=== PATIENT | male | born 1950 | race Caucasian/White ===

== ENCOUNTER 2021-10-18 14:40 | Outpatient (RCR) | payer MEDICARE, MEDICAID, SELFPAY | END 2021-11-14 11:08 | disposition home or self-care (01) | LOC: HO.WCC 14:40 | PROVIDERS: PCP Nurse Practitioner Family; Referring Provider Nurse Practitioner Family; Visit Provider Physician Assistant | DX: Z09 Encounter for follow-up examination after completed treatment for conditions other than malignant neoplasm (principal); E11.40 Type 2 diabetes mellitus with diabetic neuropathy, unspecified; E11.65 Type 2 diabetes mellitus with hyperglycemia; I10 Essential (primary) hypertension; F17.200 Nicotine dependence, unspecified, uncomplicated; Z79.84 Long term (current) use of oral hypoglycemic drugs; Z87.2 Personal history of diseases of the skin and subcutaneous tissue | CPT/HCPCS: 99212; 99214 ==

== ENCOUNTER 2021-10-21 11:02 | Outpatient (REF) | payer MEDICARE, MEDICAID, SELFPAY ==
--- NOTE | ~2021-10-21 | XR_ITS ---
EXAMINATION: XR HIP, RIGHT XR HIP, LEFT CLINICAL INFORMATION: Sciatica. COMPARISON: None TECHNIQUE: AP and frog-leg lateral views of each hip. FINDINGS: RIGHT HIP: Mild osteoarthritis is characterized by marginal osteophytes primarily. The joint space appears relatively well preserved. No fracture or malalignment. Enthesopathic spurring is present at the anterior superior iliac spine, ischial tuberosity, and the greater and lesser trochanters. No aggressive osseous lesions. Phleboliths are present in the pelvis. Mild osteoarthritis in the left SI joint. LEFT HIP: Mild osteoarthritis in the left hip with marginal osteophytes. The joint space appears relatively well preserved. No fracture or malalignment. Enthesopathic spurring is present at the trochanters and ischial tuberosity. Phleboliths are present in the pelvis. XR/XR hip LT min 2V IMPRESSION: Mild osteoarthritis in the hips. No acute osseous abnormalities.
--- NOTE | ~2021-10-21 | XR_ITS ---
EXAMINATION: XR HIP, RIGHT XR HIP, LEFT CLINICAL INFORMATION: Sciatica. COMPARISON: None TECHNIQUE: AP and frog-leg lateral views of each hip. FINDINGS: RIGHT HIP: Mild osteoarthritis is characterized by marginal osteophytes primarily. The joint space appears relatively well preserved. No fracture or malalignment. Enthesopathic spurring is present at the anterior superior iliac spine, ischial tuberosity, and the greater and lesser trochanters. No aggressive osseous lesions. Phleboliths are present in the pelvis. Mild osteoarthritis in the left SI joint. LEFT HIP: Mild osteoarthritis in the left hip with marginal osteophytes. The joint space appears relatively well preserved. No fracture or malalignment. Enthesopathic spurring is present at the trochanters and ischial tuberosity. Phleboliths are present in the pelvis. XR/XR hip RT min 2V IMPRESSION: Mild osteoarthritis in the hips. No acute osseous abnormalities.
--- NOTE | ~2021-10-21 | XR_ITS ---
EXAMINATION: XR LUMBOSACRAL SPINE WITH OBLIQUES CLINICAL INFORMATION: Low back pain and right-sided sciatica COMPARISON: None TECHNIQUE: AP, both oblique, and lateral views of the lumbar spine. Lateral view of the lumbosacral junction. FINDINGS: Bone alignment is normal. No fracture or dislocation is seen. There is multilevel degenerative spondylosis. There is degenerative disc disease at L1-L2. There is lower lumbar spine facet arthritis. There is mild atherosclerotic calcification. XR/XR lumbar spine 4V min IMPRESSION: Severe degenerative changes.
== END 2021-10-21 11:03 | disposition home or self-care (01) ==
LOC: HO.XRAY 11:02
PROVIDERS: PCP Nurse Practitioner Family; Visit Provider Nurse Practitioner Family
DX: M54.41 Lumbago with sciatica, right side (principal)
CPT/HCPCS: 72110; 73502

== ENCOUNTER 2021-10-31 11:54 | Emergency (ER) | payer MEDICARE, MEDICAID, SELFPAY ==
[2021-10-31 12:45] VITALS: BP 131/65; PULSE 64; RESP 18; TEMP 35.9; O2SAT 99; BMI 33.5
[2021-10-31 14:37] VITALS: RESP 18; TEMP 36.3
[2021-10-31] MEDS: Ketorolac Tromethamine 30 MG/ML VIAL IM (15:09)
--- NOTE | 2021-10-31 15:20 | ED.BACK ---
HPI - Back Pain/Injury General Chief Complaint: Back Pain/Injury Stated Complaint: Back pain Time Seen by Provider: 10/31/21 14:26 Source: patient Mode of arrival: ambulatory History of Present Illness HPI Narrative: 71-year-old male presenting to the ED complaining of acute on chronic neck and low back pain x months. Denies known injury/trauma or falls. Reports radiation down bilateral lower extremities. Denies numbness, tingling, weakness, urinary incontinence/retention, fever, chills MD elicited complaint: back injury Pertinent past history: prior back pain Onset (ago): month(s) Timing: constant Severity: moderate Location: lumbar spine Radiation: left upper leg and right upper leg Exacerbating factors: movement Related Data Previous Rx's Medication Instructions Recorded acetaminophen 500 mg tablet 500 mg PO Q6H PRN #20 tab 10/31/21 (Tylenol Extra Strength) lidocaine 5 % topical patch 1 patch TOPICAL DAILY PRN #30 ea 10/31/21 (Lidoderm) MDD remove after 12 hours naproxen 500 mg tablet 500 mg PO BID PRN 10 Days #20 tab 10/31/21 tramadol 50 mg tablet 50 mg PO Q8H PRN #9 tab 10/31/21 Allergies Allergy/AdvReac Type Severity Reaction Status Date / Time No Known Allergies Allergy Verified 10/31/21 12:45 Review of Systems Review of Systems: Constitutional: No Fever, No Chills ENT/Mouth: No Ear Pain, No sore throat, No Rhinorrhea Cardiovascular: No Chest Pain, No SOB Respiratory: No Cough Gastrointestinal: No Nausea, No Vomiting, No Diarrhea, No Constipation, No Abdominal pain Genitourinary: No Dysuria, No Urinary Frequency, No Hematuria, No Urinary Incontinence/retention, No Flank Pain Musculoskeletal: + joint pain, No Myalgias, No Joint Swelling Skin: No Skin Lesions, No rash Neuro: No Weakness, No Numbness, No Paresthesias Yes all other systems are reviewed and are negative Neurologic: Denies Sensory deficit (Neuro) [facility] Past Medical History Attestation statement: The following information was validated with the patient. Social History Social History Advance Directives: No Advance Directives Information Provided: No Physical Exam Vital Signs: Vital Signs: Last Vital Signs Temp 97.4 F 10/31/21 14:37 Pulse 64 10/31/21 12:45 Resp 18 10/31/21 14:37 BP 131/65 10/31/21 12:45 Pulse Ox 99 10/31/21 12:45 BMI result Body Mass Index 33.5 Const: General: cooperative, healthy appearing and no acute distress Orientation/consciousness: patient oriented x3 Limitations: no limitations HENMT: Head: Yes normal to inspection and Yes atraumatic Ears: hearing grossly normal bilaterally General nose exam: Normal external nose present Face and sinus: Yes normal facial exam Eyes: General: appearance normal, both eyes and all related structures EOM: EOMs intact bilaterally Neck: Other: No midline cervical spinous tenderness. Bilateral paraspinal tenderness Neck: Yes normal visual inspection Resp: Effort & Inspection: normal respiratory effort and no respiratory distress Cardio: Rate: regular rate Heart sounds: S1 normal heart sound present and S2 normal heart sound present GI: Inspection: Yes normal to inspection Palpation (GI): Soft to palpation and nontender : General: Yes no CVA tenderness Back/Spine/Pelvis: Other: No midline thoracic/lumbar spinous tenderness. + bilateral lumbar MSK tenderness to palpation. Pain elicited on movement Back: no CVA tenderness Skin: Rashes: no rashes Wounds: no wounds Neuro: Other: No saddle anesthesia General: patient oriented x3, gait normal, tone normal and moves all extremities Gait exam (Neuro): Normal gait present Motor exam (neuro): 5/5 motor strength present throughout Sensory Exam: No Sensory deficit (Neuro) Extrem: General: Yes normal to inspection MDM - Back Pain/Injury MDM Narrative Medical decision making narrative: 71-year-old male presenting to the ED complaining of acute on chronic neck and low back pain x months. On exam vital signs stable, NAD/well-appearing, physical exam as above. No midline spinous tenderness throughout, no red flag symptoms. Likely MSK pain/strain/muscle spasming or sciatic up. Low concern for cauda equina, cord compression, fracture. Low concern for renal stone/pyelo. Differential Diagnosis Differential diagnosis: Likely lumbar radiculopathy, sciatica and strain of lumbar region Medical Records Attestation: I reviewed the patient's medical records. Lab Data Attestation: I reviewed the patient's lab results. Discharge Plan Discharge Clinical Impression: Lumbar radiculopathy, Neck pain Patient Disposition: Home, Self-Care Instructions: Back Pain (ED), Neck Pain (ED) Additional Instructions: Your pain is likely musculoskeletal Naproxen as an anti-inflammatory / pain medication, take with food Lidoderm patches are numbing patches, apply to painful area Tramadol as an opiate pain medication, take only when pain is severe for next 3 days In addition take Tylenol at home If symptoms persist or worsen, pain becomes unbearable, you developed urinary retention or incontinence, or weakness return to the ED Es probable que velásquez dolor sea musculoesquel?filippo Naproxeno anabela medicamento antiinflamatorio / analg?sico, carlos con alimentos. Los parches de Lidoderm son parches que adormecen, se aplican al ?laureano dolorida Tramadol anabela analg?sico opi?ticket dispatcher, t?whiteside solo cuando el dolor sea intenso christal los pr?ximos 3 d?as Adem?s, tome Tylenol en casa. Si los s?ntomas persisten o empeoran, el dolor se vuelve insoportable, desarroll? retenci?n urinaria o incontinencia, o debilidad regrese al servicio de urgencias Prescriptions: New tramadol 50 mg tablet 50 mg PO Q8H PRN (Reason: pain, severe) Qty: 9 RF: 0 acetaminophen [Tylenol Extra Strength] 500 mg tablet 500 mg PO Q6H PRN (Reason: pain or fever) Qty: 20 RF: 0 lidocaine [Lidoderm] 5 % adhesive patch,medicated 1 patch topical DAILY MDD remove after 12 hours PRN (Reason: pain) Qty: 30 RF: 0 naproxen 500 mg tablet 500 mg PO BID PRN (Reason: pain) 10 Days Qty: 20 RF: 0 Referrals: Ashley Peres [Primary Care Provider] - 2 days Print Language: [place]
[2021-10-31 15:47] VITALS: RESP 19
== END 2021-10-31 15:50 | disposition home or self-care (01) ==
PROVIDERS: Emergency Provider Emergency Medicine; PCP Nurse Practitioner Family
DX: M54.16 Radiculopathy, lumbar region (principal); M54.2 Cervicalgia
CPT/HCPCS: 96372; 99284; J1885

== ENCOUNTER 2021-11-02 15:34 | Outpatient (REF) | payer MEDICARE, MEDICAID, SELFPAY ==
--- NOTE | ~2021-11-02 | MR_ITS ---
EXAMINATION: MR LUMBAR SPINE WITHOUT CONTRAST CLINICAL INFORMATION: 71-year-old with worsening chronic low back pain and right sciatica. COMPARISON: No previous MRI exams are available for comparison. TECHNIQUE: MRI of the lumbar spine was obtained using routine sequences without contrast. FINDINGS: Coronal Alignment: Normal. Sagittal Alignment: There is trace L4-L5 anterolisthesis without spondylolysis. There is trace retrolisthesis at L3-L4 and L2-L3. Lumbosacral Junction: Normal. Vertebral Bodies: Normal height. Disc Spaces and Endplates: Lzlmhsfe-rr-zhsvmk disc space height loss with intradiscal degenerative signal changes at L1-L2 with multiple Schmorl's nodes and prominent anterolateral spondylosis with bulky right paravertebral endplate osteophytosis. Mrlk-qv-reqqxtqb disc space height loss at L2-L3 with disc desiccation. Disc desiccation also noted between L3-L4 and L5-S1 inclusive without significant disc space height loss. There is prominent anterolateral spondylosis seen throughout the thoracolumbar spine with multilevel bridging osteophytosis as well as some ossification of the anterior longitudinal ligament, which are findings which suggest diffuse idiopathic skeletal hyperostosis. Spinal Canal: No abnormal developmental findings. Bone Marrow: Type I degenerative marrow signal changes seen along the endplates at L1-L2. No suspicious marrow replacing process or other foci of bone marrow edema. Conus Medullaris: Terminates at T12-L1. Morphology and signal is normal. Intradural Nerve Roots: There is some distortion of the intradural nerve roots of the cauda equina at the L1 level likely reflecting spinal stenosis at L1-L2. Otherwise within normal limits. L5-S1: Broad-based central disc protrusion superimposed on diffuse disc bulging with mild flattening of the central dural sac. Moderate bilateral facet arthropathy noted, with suspicion for a 5 mm synovial cyst along the medial aspect of the left facet joint with ligamentum flavum thickening. There is kcpn-ch-ryikxnnv bilateral subarticular recess stenosis, with some encroachment on the S1 nerve roots bilaterally without significant central spinal canal stenosis. There is moderate bilateral neural foraminal stenosis, with mild encroachment on the exiting L5 nerve roots, right more than left. L4-L5: Diffuse disc bulging is noted, with flattening of the dural sac. Ligamentum flavum thickening and a severe bilateral facet arthrosis is noted with severe left and moderate right subarticular recess stenosis, with left L5 nerve root impingement in the subarticular zone. Mild narrowing of the transverse diameter of the central canal is noted. There is moderate right-sided and qbptxoql-in-wtsoms left-sided neural foraminal stenosis, with left L4 nerve root impingement. L3-L4: Mild diffuse disc bulging is noted, with mild flattening of the dural sac slightly asymmetric to the left. There is moderate left and mild right facet arthropathy with mild left subarticular recess stenosis without significant central spinal canal stenosis. There is moderate left-sided neural foraminal stenosis, with mild impingement on the exiting left L3 nerve root. L2-L3: Diffuse disc bulging is noted with moderate flattening of the ventral dural sac, with yilu-kr-xoawsujj bilateral facet arthropathy. There is mild central spinal canal stenosis and moderate bilateral subarticular recess stenosis. There is osch-sg-pqdalact bilateral neural foraminal stenosis, with disc bulging abutting the extraforaminal right L2 nerve root. L1-L2: Generalized diffuse disc bulging is noted slightly asymmetric to the left, with flattening of the dural sac and a prominent dorsal epidural fat pad with ligamentum flavum thickening and npxg-hz-kgtnqgva facet arthropathy bilaterally. There is severe central spinal canal stenosis, with crowding of the intradural nerve roots with severe bilateral subarticular recess stenosis. There is pyqt-qt-wsxdtgjd left-sided and moderate right-sided neural foraminal stenosis, with the disc bulging abutting the extraforaminal right L1 nerve root. There is bulky right paravertebral endplate osteophytosis. T12-L1: Small central extruded disc herniation with mild caudal migration noted with flattening of the central dural sac. There is mild facet arthrosis on the left and there is a 5 mm focus of the low signal dorsal to the dural sac centrally and to the left of midline which appears to arrive from the ligamentum flavum on the left or medial aspect of the left facet joint and may reflect either a small focus of calcium hydroxyapatite deposition or possibly a calcified synovial cyst. There is mild central spinal canal stenosis and there is lcfp-xy-jsykdgqq left-sided neural foraminal stenosis without neural impingement. Paraspinal/Retroperitoneal: There is tkdf-yt-jnemrnbe generalized diffuse posterior paraspinal and psoas muscle volume loss. There are multiple simple-appearing partially imaged bilateral renal cysts, with the largest of these arising exophytically from the upper pole of the left kidney, measuring 4.3 cm maximum dimension. Limited assessment. No specific follow-up recommended for these based on the current ACR best practice guidelines.. MR/MR lumbar spine wo con IMPRESSION: 1. Slight anterolisthesis at L4-L5 and minimal retrolisthesis at L3-L4. 2. Multilevel DDD and spondylosis with degenerative disc disease most apparent at L1-L2. Bony productive findings throughout the visualized thoracolumbar spine are suggestive of DISH. 3. Multilevel disc bulging and disc herniations as described above with multilevel bilateral facet arthropathy, with severe spinal canal stenosis at L1-L2, mild spinal canal stenosis at L2-L3 and L4-L5 and multilevel bilateral subarticular recess stenosis as detailed above. 4. Multilevel bilateral neural foraminal stenosis as detailed by level above with encroachment on/impingement on the exiting nerve roots at multiple levels. See above for details.
== END 2021-11-02 15:35 | disposition home or self-care (01) ==
LOC: HO.MRI 15:34
PROVIDERS: PCP Nurse Practitioner Family; Visit Provider Nurse Practitioner Family
DX: M54.41 Lumbago with sciatica, right side (principal); G89.29 Other chronic pain
CPT/HCPCS: 72148